=== PATIENT | female | born 1940 | race Caucasian/White ===

== ENCOUNTER 2016-09-12 09:10 | Inpatient (IN) | payer MEDICARE, MEDICAID ==
[~2016-09-12] VITALS: Ht 157.5 cm; Wt 79.8 kg
[~2016-09-12 09:10] MED LIST: ACET-2708; ASPI-1158 PO; ASPI-1159 PO; BENA20TA3 PO; CLON0.1T PO; COLC0.6T2 PO; DILT120T13 PO; DILT360C30 PO; FAMO20TA96 PO; GLIP5TAB12 PO; HYDR-3927 PO; HYDR-523; LOSA100T3 PO; METF500T4 PO; PREG50CA PO; VALS160T2 PO
[2016-09-12] MEDS ORDERED: SODIUM CHLORIDE 0.9% 1,000 ML IV ONE (09:40)
[2016-09-12] MEDS ORDERED: MORPHINE SULFATE 4 MG/ML CPJ (NOT FOR IM USE) IV STA (09:40)
[2016-09-12] MEDS ORDERED: ONDANSETRON HCL 4MG/2ML VIAL IV STA (09:40)
[2016-09-12 10:10] LABS: BASOPHILS % 0.3 % (0.0-2.0); EOSINOPHILS % 3.2 % (0.0-5.0); HEMATOCRIT. 39.5 % (36.0-48.0); LYMPHOCYTES % 15.9 % (20.0-50.0); MEAN CORPUSCULAR HEMOGLOBIN 27.8 pg (28.0-32.0); MEAN CORPUSCULAR VOLUME 84.4 fL (81.0-99.0); MEAN PLATELET VOLUME 9.2 fl (7.4-10.4); MONOCYTES % 6.4 % (2.0-8.0); NEUTROPHILS % 74.2 % (40.0-76.0); PLATELET 223 x1000/uL (130-400); RED BLOOD CELL COUNT 4.69 mill/uL (4.2-5.4); RED CELL DISTRIBUTION WIDTH 14.3 % (11.6-14.6)
[2016-09-12 10:12] LABS: CHLORIDE 102 mEq/L (98-107)
[2016-09-12 10:15] LABS: PROTHROMBIN TIME 10.4 sec
[2016-09-12 10:22] LABS: CARBON DIOXIDE 30 mEq/L (21-32)
[2016-09-12] MEDS ORDERED: POTASSIUM CHLORIDE 20MEQ TABLET SR PO ONE (11:15)
[2016-09-12 11:41] LABS: CLARITY URINE CLEAR (CLEAR); COLOR URINE YELLOW (YELLOW); GLUCOSE URINE NEGATIVE (NEGATIVE); KETONES URINE NEGATIVE (NEGATIVE); LEUKOCYTE ESTERASE URINE TRACE (NEGATIVE); NITRITE URINE NEGATIVE (NEGATIVE); OCCULT BLOOD URINE 2+ (NEGATIVE); PROTEIN URINE 3+ (NEGATIVE); SPECIFIC GRAVITY URINE 1.012 (1.005-1.030); UROBILINOGEN URINE 0.2 E.U./dL (0.2-1.0)
[2016-09-12] MEDS ORDERED: LEVOFLOXACIN 500MG PREMIX 100 ML IV ONE (12:15)
[2016-09-12] MEDS ORDERED: METRONIDAZOLE 500 MG PREMIX 100 ML IV ONE (12:15)
[2016-09-12] MEDS ORDERED: IPRATROPIUM/ALBUTEROL 0.5-3(2.5)MG/3ML NEB INH PRN (13:00)
[2016-09-12] MEDS ORDERED: ACETAMINOPHEN 325MG TABLET PO PRN (13:00)
[2016-09-12] MEDS ORDERED: PANTOPRAZOLE SODIUM 40 MG/VIAL IV NR (13:00)
[2016-09-12] MEDS ORDERED: LEVOFLOXACIN 500MG PREMIX 100 ML IV SCH (13:00)
[2016-09-12 13:46] LABS: TOTAL IRON BINDING CAPACITY 295 ug/dL (250-450)
[2016-09-12] MEDS: ONDANSETRON HCL 4MG/2ML VIAL IV PRN ×3 (15:11→23:59)
[2016-09-12] MEDS: HYDROMORPHONE HCL/PF 2MG/ML CPJ IV PRN ×3 (15:12→21:45)
[2016-09-12 15:37] VITALS: BP 148/88
[2016-09-12 16:00] VITALS: BP 156/84
[2016-09-12] MEDS ORDERED: CLON0.2T PO (17:46)
[2016-09-12] MEDS ORDERED: HYDROMORPHONE (17:46)
[2016-09-12] MEDS ORDERED: [UNRECOGNIZED DRUG - OTHER] (17:46)
[2016-09-12] MEDS ORDERED: AMLO10TA80 PO (17:46)
[2016-09-12] MEDS ORDERED: LANTUS INSULIN SQ (17:46)
[2016-09-12 22:04] VITALS: BP 156/95
[2016-09-13] VITALS (8 sets, daily range): BP systolic 143–186; BP diastolic 78–106
[2016-09-13] MEDS: SODIUM CHL 0.45% + KCL 20MEQ/L 1,000 ML IV SCH ×2 (00:13→12:20)
[2016-09-13] MEDS ORDERED: DEXTROSE 50% WATER 50ML SYRINGE IV PRN (00:15)
[2016-09-13] MEDS: LORAZEPAM 0.5MG TABLET PO PRN ×2 (00:44→11:29)
[2016-09-13 03:43] LABS: CLARITY URINE CLOUDY (CLEAR); COLOR URINE YELLOW (YELLOW); GLUCOSE URINE NEGATIVE (NEGATIVE); KETONES URINE NEGATIVE (NEGATIVE); LEUKOCYTE ESTERASE URINE 1+ (NEGATIVE); NITRITE URINE NEGATIVE (NEGATIVE); OCCULT BLOOD URINE 1+ (NEGATIVE); PROTEIN URINE 3+ (NEGATIVE); SPECIFIC GRAVITY URINE 1.015 (1.005-1.030); UROBILINOGEN URINE 0.2 E.U./dL (0.2-1.0)
[2016-09-13] MEDS: HYDROMORPHONE HCL/PF 2MG/ML CPJ IV PRN ×4 (04:25→17:57)
[2016-09-13] MEDS: ONDANSETRON HCL 4MG/2ML VIAL IV PRN ×5 (04:27→23:24)
[2016-09-13 06:01] LABS: BASOPHILS % 0.4 % (0.0-2.0); HEMATOCRIT. 37.9 % (36.0-48.0); HEMOGLOBIN. 12.2 g/dL (12.0-16.0); LYMPHOCYTES % 10.4 % (20.0-50.0); MEAN CORPUSCULAR HEMOGLOBIN 27.8 pg (28.0-32.0); MEAN CORPUSCULAR VOLUME 86.1 fL (81.0-99.0); MEAN PLATELET VOLUME 9.2 fl (7.4-10.4); MONOCYTES % 3.6 % (2.0-8.0); NEUTROPHILS % 85.6 % (40.0-76.0); PLATELET 213 x1000/uL (130-400); RED BLOOD CELL COUNT 4.41 mill/uL (4.2-5.4); RED CELL DISTRIBUTION WIDTH 14.4 % (11.6-14.6)
[2016-09-13 06:25] LABS: CARBON DIOXIDE 24 mEq/L (21-32); CHLORIDE 102 mEq/L (98-107)
[2016-09-13] MEDS: BLOOD SUGAR DIAGNOSTIC STRIP TEST SCH ×4 (06:34→21:49)
[2016-09-13] MEDS: INSULIN LISPRO 100 UNITS/ML SUBCUT SCH ×4 (06:38→22:00)
[2016-09-13] MEDS: PANTOPRAZOLE SODIUM 40 MG/VIAL IV SCH (08:33)
[2016-09-13] MEDS: AMLODIPINE 10MG TABLET PO SCH (11:51)
[2016-09-13] MEDS: CLONIDINE 0.2MG TABLET PO SCH (11:51)
[2016-09-13] MEDS: LEVOFLOXACIN 500MG PREMIX 100 ML IV SCH (15:13)
[2016-09-13] MEDS ORDERED: HYDROMORPHONE HCL/PF 4MG/ML CPJ IV PRN (16:30)
[2016-09-13] MEDS: CLONIDINE 0.1MG TABLET PO PRN (16:38)
[2016-09-14] VITALS (7 sets, daily range): BP systolic 128–167; BP diastolic 70–117
[2016-09-14] MEDS: HYDROMORPHONE HCL/PF 2MG/ML CPJ IV PRN ×2 (00:15→10:43)
[2016-09-14] MEDS: CLONIDINE 0.1MG TABLET PO PRN (05:29)
[2016-09-14] MEDS: SODIUM CHL 0.45% + KCL 20MEQ/L 1,000 ML IV SCH ×2 (05:30→14:29)
[2016-09-14] MEDS: BLOOD SUGAR DIAGNOSTIC STRIP TEST SCH ×4 (06:26→21:50)
[2016-09-14] MEDS: INSULIN LISPRO 100 UNITS/ML SUBCUT SCH ×4 (07:28→22:00)
[2016-09-14 08:14] LABS: BASOPHILS % 0.3 % (0.0-2.0); EOSINOPHILS % 0.2 % (0.0-5.0); HEMATOCRIT. 34.8 % (36.0-48.0); HEMOGLOBIN. 11.3 g/dL (12.0-16.0); MEAN CORPUSCULAR HEMOGLOBIN 27.7 pg (28.0-32.0); MEAN CORPUSCULAR VOLUME 85.5 fL (81.0-99.0); MEAN PLATELET VOLUME 9.5 fl (7.4-10.4); NEUTROPHILS % 78.5 % (40.0-76.0); PLATELET 224 x1000/uL (130-400); RED BLOOD CELL COUNT 4.07 mill/uL (4.2-5.4); RED CELL DISTRIBUTION WIDTH 14.4 % (11.6-14.6)
[2016-09-14] MEDS: ONDANSETRON HCL 4MG/2ML VIAL IV PRN ×4 (08:14→22:36)
[2016-09-14] MEDS: PANTOPRAZOLE SODIUM 40 MG/VIAL IV SCH (09:37)
[2016-09-14] MEDS: CLONIDINE 0.2MG TABLET PO SCH (09:37)
[2016-09-14] MEDS: AMLODIPINE 10MG TABLET PO SCH (09:38)
[2016-09-14] MEDS: NEBIVOLOL HCL 5 MG TABLET PO SCH (09:38)
[2016-09-14] MEDS ORDERED: SORBITOL 70% SOLN 30ML PO PRN (10:00)
[2016-09-14] MEDS: LEVOFLOXACIN 500MG PREMIX 100 ML IV SCH (14:29)
[2016-09-14] MEDS ORDERED: HYDROCODONE/ACETAMINOPHEN 5/325MG TABLET PO PRN (15:15)
[2016-09-14] MEDS: LORAZEPAM 0.5MG TABLET PO PRN (22:37)
[2016-09-15] VITALS (7 sets, daily range): BP systolic 115–191; BP diastolic 73–101
[2016-09-15] MEDS: SODIUM CHL 0.45% + KCL 20MEQ/L 1,000 ML IV SCH (02:23)
[2016-09-15] MEDS: LORAZEPAM 0.5MG TABLET PO PRN (02:23)
[2016-09-15 06:24] LABS: BASOPHILS % 0.5 % (0.0-2.0); EOSINOPHILS % 2.3 % (0.0-5.0); HEMATOCRIT. 33.9 % (36.0-48.0); HEMOGLOBIN. 11.2 g/dL (12.0-16.0); LYMPHOCYTES % 20.3 % (20.0-50.0); MEAN CORPUSCULAR VOLUME 84.6 fL (81.0-99.0); MEAN PLATELET VOLUME 9.1 fl (7.4-10.4); MONOCYTES % 6.9 % (2.0-8.0); PLATELET 205 x1000/uL (130-400); RED BLOOD CELL COUNT 4.01 mill/uL (4.2-5.4); RED CELL DISTRIBUTION WIDTH 14.3 % (11.6-14.6)
[2016-09-15] MEDS: INSULIN LISPRO 100 UNITS/ML SUBCUT SCH (07:15)
[2016-09-15] MEDS: BLOOD SUGAR DIAGNOSTIC STRIP TEST SCH (07:43)
[2016-09-15] MEDS: PANTOPRAZOLE SODIUM 40 MG/VIAL IV SCH (08:00)
[2016-09-15] MEDS: CLONIDINE 0.1MG TABLET PO PRN (08:01)
[2016-09-15] MEDS: AMLODIPINE 10MG TABLET PO SCH (08:01)
[2016-09-15] MEDS: NEBIVOLOL HCL 5 MG TABLET PO SCH (08:01)
[2016-09-15] MEDS: CLONIDINE 0.2MG TABLET PO SCH (09:00)
== END 2016-09-15 12:05 | disposition home or self-care (01) | DRG 378 ==
LOC: ER 09:49 → 5WST 12:20 → ENRESERV 13:38
PROVIDERS: ADMIT Internal Medicine Geriatric Medicine; ATTEND Internal Medicine Geriatric Medicine
DX: K62.5 Hemorrhage of anus and rectum (principal); E44.1 Mild protein-calorie malnutrition; K86.1 Other chronic pancreatitis; N39.0 Urinary tract infection, site not specified; E11.65 Type 2 diabetes mellitus with hyperglycemia; K57.30 Diverticulosis of large intestine without perforation or abscess without bleeding; E87.6 Hypokalemia; I10 Essential (primary) hypertension; K21.9 Gastro-esophageal reflux disease without esophagitis; K52.9 Noninfective gastroenteritis and colitis, unspecified; K58.1 Irritable bowel syndrome with constipation; Z96.1 Presence of intraocular lens; Z96.659 Presence of unspecified artificial knee joint; M19.90 Unspecified osteoarthritis, unspecified site; Z79.82 Long term (current) use of aspirin; Z79.84 Long term (current) use of oral hypoglycemic drugs; Z79.899 Other long term (current) drug therapy; Z83.3 Family history of diabetes mellitus; Z86.711 Personal history of pulmonary embolism; Z90.49 Acquired absence of other specified parts of digestive tract; Z68.32 Body mass index [BMI] 32.0-32.9, adult; Z90.710 Acquired absence of both cervix and uterus; Z98.49 Cataract extraction status, unspecified eye; Z88.0 Allergy status to penicillin; Z88.2 Allergy status to sulfonamides; Z88.6 Allergy status to analgesic agent; Z88.8 Allergy status to other drugs, medicaments and biological substances
CPT/HCPCS: 36415; 74176; 80048; 80053; 81001; 82270; 82962; 83036; 83540; 83550; 83605; 83690; 85025; 85610; 86850; 86900; 87015; 87040; 87045; 87077; 87086; 87186; 87427; 87449; 89055; 93005; 96361; 96365; 96366; 96375; 97116; 97162; 99285; C9113; J1170; J1815; J1956; J2270; J2405; J3480; J7030

== ENCOUNTER 2017-07-28 08:56 | Emergency (ER) | payer MEDICARE, MEDICAID ==
[~2017-07-28] VITALS: Ht 157.5 cm; Wt 73.0 kg
[~2017-07-28 08:56] MED LIST changes: -ACET-2708; +AMLO10TA80 PO; -ASPI-1158 PO; -ASPI-1159 PO; -BENA20TA3 PO; -CLON0.1T PO; +CLON0.2T PO; -COLC0.6T2 PO; -DILT120T13 PO; -DILT360C30 PO; -FAMO20TA96 PO; -GLIP5TAB12 PO; -HYDR-3927 PO; -HYDR-523; +HYDROMORPHONE; +LANTUS INSULIN SQ; -LOSA100T3 PO; -METF500T4 PO; -PREG50CA PO; -VALS160T2 PO; +[UNRECOGNIZED DRUG - OTHER]
[2017-07-28] MEDS ORDERED: ACETAMINOPHEN 325MG TABLET PO ONE (10:15)
[2017-07-28 10:40] VITALS: BP 145/82
[2017-07-30] MEDS ORDERED: INSU100I22 SQ (23:33)
== END 2017-07-28 10:43 | disposition home or self-care (01) ==
LOC: ER 09:00
DX: R51 Headache (principal); E11.9 Type 2 diabetes mellitus without complications; I10 Essential (primary) hypertension; Z79.4 Long term (current) use of insulin; Z88.0 Allergy status to penicillin; Z88.2 Allergy status to sulfonamides; Z88.5 Allergy status to narcotic agent
CPT/HCPCS: 99283

== ENCOUNTER → 2019-11-21 | Outpatient (CLI) | payer MEDICARE, MEDICAID ==
[~2019-11-21] MED LIST changes: -AMLO10TA80 PO; +AMLO5TAB88 PO; +ATOR20TA PO; +ATOR20TA65 PO; -CLON0.2T PO; +CLOP75TA15 PO; +DULO60CA44 PO; +FERR325T23 PO; -HYDROMORPHONE; +INSU100I22 SQ; -LANTUS INSULIN SQ; +LANTUSUD SUBCUT; +LIDO700A30 TOP; +METO-539 PO; +ONDA4TAB50 PO; +PANT40TA4 PO; +POLY17PO3 PO; +TOPUD PO; -[UNRECOGNIZED DRUG - OTHER]
== END | disposition home or self-care (01) ==
LOC: LAB 10:25
PROVIDERS: ATTEND Internal Medicine Geriatric Medicine
DX: Z20.828 Contact with and (suspected) exposure to other viral communicable diseases (principal)
CPT/HCPCS: C9803; U0003

== ENCOUNTER → 2019-11-23 | Day surgery (SDC) | payer MEDICARE, MEDICAID ==
[~2019-11-23] MED LIST changes: +LIDOCAINE HCL/EPINEPHRINE 1%-EPI 1:100,000 20 ML VIAL ONE; +SODIUM BICARBONATE 4% (2.4MEQ) 5ML VIAL IV ONE
== END | disposition home or self-care (01) ==
LOC: RAD 10:48
PROVIDERS: ATTEND Internal Medicine Geriatric Medicine
DX: N63.10 Unspecified lump in the right breast, unspecified quadrant (principal); R92.8 Other abnormal and inconclusive findings on diagnostic imaging of breast; Z79.4 Long term (current) use of insulin; Z79.899 Other long term (current) drug therapy; Z88.0 Allergy status to penicillin; Z88.2 Allergy status to sulfonamides; Z83.3 Family history of diabetes mellitus
CPT/HCPCS: 19083; 88305; J3490

== ENCOUNTER 2021-03-18 08:49 | Inpatient (IN) | payer MEDICARE, MEDICAID ==
[~2021-03-18] VITALS: Ht 162.6 cm; Wt 73.2 kg
[~2021-03-18 08:49] MED LIST changes: -CLOP75TA15 PO; +FLUC100T42 MT; +LACT1CAP77 PO; +LEVO500T2 MT; -LIDOCAINE HCL/EPINEPHRINE 1%-EPI 1:100,000 20 ML VIAL ONE; +METO5TAB2 PO; +METR-167 MT; -PANT40TA4 PO; +PANT40TA51 PO; -POLY17PO3 PO; -SODIUM BICARBONATE 4% (2.4MEQ) 5ML VIAL IV ONE
[2021-03-18] MEDS ORDERED: ACETAMINOPHEN 325MG TABLET PO PRN (09:45)
[2021-03-18] MEDS ORDERED: HYDROMORPHONE HCL/PF 2MG/ML CPJ IV PRN (09:45)
[2021-03-18] MEDS ORDERED: ONDANSETRON HCL 4MG/2ML INJ IV PRN (09:45)
[2021-03-18] MEDS ORDERED: CLONIDINE 0.1MG TABLET PO PRN (09:45)
[2021-03-18] MEDS: IPRATROPIUM/ALBUTEROL 0.5-3(2.5)MG/3ML NEB HHN SCH ×3 (10:15→16:00)
[2021-03-18] MEDS ORDERED: NALOXONE HCL 0.4MG/ML VIAL IV PRN (10:15)
[2021-03-18] MEDS: SODIUM CHL 0.45% + KCL 20MEQ/L 1,000 ML IV SCH ×2 (10:30→20:30)
[2021-03-18 11:05] LABS: CHLORIDE 101 mEq/L (98-107)
[2021-03-18 14:18] LABS: BASOPHILS % 0.3 % (0.0-2.0); EOSINOPHILS % 0.2 % (0.0-5.0); HEMATOCRIT. 33.7 % (36.0-48.0); LYMPHOCYTES % 13.3 % (20.0-50.0); MEAN CORPUSCULAR HEMOGLOBIN 26.9 pg (28.0-32.0); MEAN CORPUSCULAR VOLUME 82.2 fL (81.0-99.0); MEAN PLATELET VOLUME 8.9 fl (7.4-10.4); MONOCYTES % 9.2 % (2.0-8.0); PLATELET 209 x1000/uL (130-400); RED CELL DISTRIBUTION WIDTH 16.2 % (11.6-14.6)
[2021-03-18] MEDS ORDERED: ENOXAPARIN 40MG/0.4ML SYR SUBCUT SCH (15:00)
[2021-03-18 17:56] LABS: CREATINE KINASE 68 IU/L (26-192)
[2021-03-18] MEDS ORDERED: SODIUM CHLORIDE 0.9% 1,000 ML IV ONE (18:15)
[2021-03-18] MEDS: DEXAMETHASONE 10 MG/ML VIAL IV SCH (23:30)
[2021-03-19] MEDS: ALBUTEROL 6.7GM HFA INHALER ORI SCH ×2 (00:23)
[2021-03-19 04:00] VITALS: BP 163/59
[2021-03-19] MEDS: SODIUM CHL 0.45% + KCL 20MEQ/L 1,000 ML IV SCH ×3 (07:13→16:30)
[2021-03-19] MEDS: DOCUSATE SODIUM 250MG CAPSULE PO SCH (09:00)
[2021-03-19] MEDS ORDERED: ERGOCALCIFEROL 50000UNITS CAPSULE PO SCH ×2 (09:30→14:00)
[2021-03-19 10:05] LABS: BASOPHILS % 0.2 % (0.0-2.0); HEMATOCRIT. 34.8 % (36.0-48.0); HEMOGLOBIN. 11.1 g/dL (12.0-16.0); LYMPHOCYTES % 21.8 % (20.0-50.0); MEAN CORPUSCULAR HEMOGLOBIN 26.8 pg (28.0-32.0); MEAN CORPUSCULAR VOLUME 83.5 fL (81.0-99.0); MEAN PLATELET VOLUME 9.1 fl (7.4-10.4); MONOCYTES % 4.3 % (2.0-8.0); NEUTROPHILS % 73.7 % (40.0-76.0); PLATELET 199 x1000/uL (130-400); RED BLOOD CELL COUNT 4.16 mill/uL (4.2-5.4)
[2021-03-19 10:18] LABS: CHLORIDE 105 mEq/L (98-107)
[2021-03-19] MEDS: ENOXAPARIN 40MG/0.4ML SYR SUBCUT SCH ×2 (10:50→21:00)
[2021-03-19] MEDS: PANTOPRAZOLE 40MG DR TABLET PO SCH (10:51)
[2021-03-19] MEDS: DEXAMETHASONE 10 MG/ML VIAL IV SCH (10:51)
[2021-03-19 12:00] VITALS: BP_SYST 128; BP_SYST 136; BP_DIAS 48; BP_DIAS 74
[2021-03-19] MEDS ORDERED: METO25TA6 PO (13:25)
[2021-03-19] MEDS ORDERED: DEXTROSE 50% WATER 50ML SYRINGE IV PRN (15:45)
[2021-03-19 16:00] VITALS: BP 142/74
[2021-03-19] MEDS: BLOOD SUGAR DIAGNOSTIC STRIP TEST SCH ×2 (16:40→21:13)
[2021-03-19] MEDS: MONTELUKAST SODIUM 10MG TABLET PO SCH (17:47)
[2021-03-19] MEDS: INSULIN LISPRO 100 UNITS/ML SUBCUT SCH ×2 (18:01→21:14)
[2021-03-19 20:00] VITALS: BP 150/71
[2021-03-20] MEDS: SODIUM CHL 0.45% + KCL 20MEQ/L 1,000 ML IV SCH ×4 (00:48→20:00)
[2021-03-20] MEDS: ALBUTEROL 6.7GM HFA INHALER ORI SCH ×4 (05:42→17:22)
[2021-03-20] MEDS: PANTOPRAZOLE 40MG DR TABLET PO SCH (05:42)
[2021-03-20] MEDS: INSULIN LISPRO 100 UNITS/ML SUBCUT SCH ×4 (06:46→20:59)
[2021-03-20] MEDS: BLOOD SUGAR DIAGNOSTIC STRIP TEST SCH ×4 (06:47→20:26)
[2021-03-20 08:00] VITALS: BP 135/70
[2021-03-20] MEDS: DOCUSATE SODIUM 250MG CAPSULE PO SCH (08:21)
[2021-03-20] MEDS: ENOXAPARIN 40MG/0.4ML SYR SUBCUT SCH ×2 (08:21→20:58)
[2021-03-20] MEDS: DEXAMETHASONE 10 MG/ML VIAL IV SCH (08:22)
[2021-03-20] MEDS ORDERED: MAGNESIUM/ALUMINUM HYDROXIDE/SIMETHICONE 30ML UDC PO NR (09:30)
[2021-03-20] MEDS ORDERED: MAGNESIUM/ALUMINUM HYDROXIDE/SIMETHICONE 30ML UDC PO PRN (09:30)
[2021-03-20 11:06] LABS: BASOPHILS % 0.1 % (0.0-2.0); HEMATOCRIT. 34.6 % (36.0-48.0); LYMPHOCYTES % 13.1 % (20.0-50.0); MEAN CORPUSCULAR HEMOGLOBIN 26.5 pg (28.0-32.0); MEAN CORPUSCULAR VOLUME 83.9 fL (81.0-99.0); MEAN PLATELET VOLUME 8.9 fl (7.4-10.4); MONOCYTES % 7.1 % (2.0-8.0); NEUTROPHILS % 79.7 % (40.0-76.0); PLATELET 244 x1000/uL (130-400); RED BLOOD CELL COUNT 4.13 mill/uL (4.2-5.4); RED CELL DISTRIBUTION WIDTH 16.3 % (11.6-14.6)
[2021-03-20] MEDS ORDERED: AMLODIPINE 5MG TABLET PO NR (11:30)
[2021-03-20 11:37] LABS: CHLORIDE 104 mEq/L (98-107)
[2021-03-20 12:00] VITALS: BP 144/64
[2021-03-20 14:56] LABS: BG BASE EXCESS -2.4 mmol/L (-2.0-2.0); BG CARBOXYHEMOGLOBIN 0.9 % (0.5-1.5); BG DEOXYHEMOGLOBIN 9.9 % (0.0-5.0); BG FRACTION INSPIRED OXYGEN 21; BG HCO3 ACT 21.8 mmol/L (22.0-26.0); BG METHEMOGLOBIN 0.3 % (0.0-1.5); BG OXYHEMOGLOBIN 88.9 % (94.0-97.0); BG PCO2 35.9 mmHg (35.0-45.0); BG PH 7.402 (7.350-7.450); BG SAMPLE SITE RIGHT RADIAL; BG TOTAL HEMOGLOBIN 11.4 g/dL (12.0-18.0); BG VENT MODE ROOM AIR
[2021-03-20 16:00] VITALS: BP 149/64
[2021-03-20] MEDS: MONTELUKAST SODIUM 10MG TABLET PO SCH (17:22)
[2021-03-20 20:00] VITALS: BP 149/69
[2021-03-20] MEDS: AMLODIPINE 5MG TABLET PO SCH (20:59)
[2021-03-21] MEDS: ALBUTEROL 6.7GM HFA INHALER ORI SCH ×4 (00:02→17:22)
[2021-03-21 04:00] VITALS: BP 162/82
[2021-03-21] MEDS: BLOOD SUGAR DIAGNOSTIC STRIP TEST SCH ×4 (05:49→21:00)
[2021-03-21] MEDS: SODIUM CHL 0.45% + KCL 20MEQ/L 1,000 ML IV SCH ×2 (05:52→22:47)
[2021-03-21] MEDS: FAMOTIDINE 20MG TABLET PO SCH (06:02)
[2021-03-21] MEDS: INSULIN LISPRO 100 UNITS/ML SUBCUT SCH ×4 (06:12→22:09)
[2021-03-21 08:00] VITALS: BP 147/75
[2021-03-21] MEDS ORDERED: AMLODIPINE 2.5MG TABLET PO ONE (09:15)
[2021-03-21] MEDS: ENOXAPARIN 40MG/0.4ML SYR SUBCUT SCH ×2 (09:35→22:06)
[2021-03-21] MEDS: DOCUSATE SODIUM 250MG CAPSULE PO SCH (09:35)
[2021-03-21] MEDS: AMLODIPINE 5MG TABLET PO SCH ×2 (09:36→22:07)
[2021-03-21] MEDS: DEXAMETHASONE 10 MG/ML VIAL IV SCH (09:37)
[2021-03-21 12:00] VITALS: BP 156/88
[2021-03-21] MEDS: BENZONATATE 100MG CAPSULE PO SCH ×3 (13:24→22:06)
[2021-03-21] MEDS: INSULIN GLARGINE UD 100 UNITS/ML SYR SUBCUT SCH (13:33)
[2021-03-21 16:00] VITALS: BP 150/78
[2021-03-21] MEDS: MONTELUKAST SODIUM 10MG TABLET PO SCH (16:36)
[2021-03-21 20:00] VITALS: BP 147/86
[2021-03-21 20:02] VITALS: BP 147/86
[2021-03-22] VITALS: BP 138/77
[2021-03-22 04:00] VITALS: BP 144/74
[2021-03-22] MEDS: BENZONATATE 100MG CAPSULE PO SCH ×3 (05:32→22:17)
[2021-03-22] MEDS: FAMOTIDINE 20MG TABLET PO SCH (05:32)
[2021-03-22] MEDS: ALBUTEROL 6.7GM HFA INHALER ORI SCH ×4 (05:32→17:17)
[2021-03-22] MEDS: INSULIN LISPRO 100 UNITS/ML SUBCUT SCH ×4 (06:10→22:15)
[2021-03-22] MEDS: BLOOD SUGAR DIAGNOSTIC STRIP TEST SCH ×4 (06:10→21:00)
[2021-03-22 08:00] VITALS: BP 161/58
[2021-03-22] MEDS ORDERED: AMLODIPINE 2.5MG TABLET PO SCH (09:00)
[2021-03-22] MEDS: INSULIN GLARGINE UD 100 UNITS/ML SYR SUBCUT SCH (09:36)
[2021-03-22] MEDS: ENOXAPARIN 40MG/0.4ML SYR SUBCUT SCH ×2 (09:36→22:14)
[2021-03-22] MEDS: DOCUSATE SODIUM 250MG CAPSULE PO SCH (09:37)
[2021-03-22] MEDS: DEXAMETHASONE 10 MG/ML VIAL IV SCH (09:37)
[2021-03-22] MEDS: AMLODIPINE 5MG TABLET PO SCH ×2 (09:37→21:00)
[2021-03-22 12:18] VITALS: BP 155/83
[2021-03-22] MEDS: HYDRALAZINE HCL 50MG TABLET PO SCH ×2 (13:58→22:00)
[2021-03-22 16:00] VITALS: BP 147/77
[2021-03-22 16:23] LABS: HEMATOCRIT. 38.2 % (36.0-48.0); HEMOGLOBIN. 12.3 g/dL (12.0-16.0); MEAN CORPUSCULAR HEMOGLOBIN 26.6 pg (28.0-32.0); MEAN CORPUSCULAR VOLUME 82.5 fL (81.0-99.0); MEAN PLATELET VOLUME 9.6 fl (7.4-10.4); PLATELET 246 x1000/uL (130-400); RED BLOOD CELL COUNT 4.63 mill/uL (4.2-5.4); RED CELL DISTRIBUTION WIDTH 16.2 % (11.6-14.6)
[2021-03-22] MEDS: MONTELUKAST SODIUM 10MG TABLET PO SCH (17:12)
[2021-03-22] MEDS ORDERED: SODIUM POLYSTYRENE SULFONATE 15 G/60 ML BOT PO NR (19:00)
[2021-03-22] MEDS ORDERED: INSULIN REGULAR (HUMULIN R) 300UNITS/3ML VIAL IV NR (19:15)
[2021-03-22 20:00] VITALS: BP 90/50
[2021-03-22 21:15] LABS: PLATELET ESTIMATE NORMAL
[2021-03-23 04:00] VITALS: BP 170/85
[2021-03-23] MEDS: BENZONATATE 100MG CAPSULE PO SCH ×3 (05:01→20:41)
[2021-03-23] MEDS: FAMOTIDINE 20MG TABLET PO SCH (05:01)
[2021-03-23] MEDS: ALBUTEROL 6.7GM HFA INHALER ORI SCH ×2 (05:01→23:05)
[2021-03-23] MEDS: BLOOD SUGAR DIAGNOSTIC STRIP TEST SCH ×4 (05:54→20:41)
[2021-03-23] MEDS: HYDRALAZINE HCL 50MG TABLET PO SCH (05:54)
[2021-03-23] MEDS: INSULIN LISPRO 100 UNITS/ML SUBCUT SCH ×4 (06:21→20:41)
[2021-03-23 06:52] LABS: BASOPHILS % 0.1 % (0.0-2.0); HEMATOCRIT. 35.8 % (36.0-48.0); LYMPHOCYTES % 10.9 % (20.0-50.0); MEAN CORPUSCULAR HEMOGLOBIN 27.3 pg (28.0-32.0); MEAN CORPUSCULAR VOLUME 81.2 fL (81.0-99.0); MEAN PLATELET VOLUME 9.1 fl (7.4-10.4); MONOCYTES % 8.7 % (2.0-8.0); NEUTROPHILS % 80.3 % (40.0-76.0); PLATELET 253 x1000/uL (130-400); RED BLOOD CELL COUNT 4.41 mill/uL (4.2-5.4); RED CELL DISTRIBUTION WIDTH 16.1 % (11.6-14.6)
[2021-03-23 08:00] VITALS: BP 163/98
[2021-03-23] MEDS: ENOXAPARIN 40MG/0.4ML SYR SUBCUT SCH ×2 (09:26→20:42)
[2021-03-23] MEDS: AMLODIPINE 5MG TABLET PO SCH ×2 (09:26→20:41)
[2021-03-23] MEDS: DEXAMETHASONE 10 MG/ML VIAL IV SCH (09:26)
[2021-03-23] MEDS: DOCUSATE SODIUM 250MG CAPSULE PO SCH (09:26)
[2021-03-23] MEDS: INSULIN GLARGINE UD 100 UNITS/ML SYR SUBCUT SCH (10:23)
[2021-03-23 12:00] VITALS: BP 144/76
[2021-03-23] MEDS: HYDRALAZINE HCL 25MG TABLET PO SCH ×2 (14:04→21:13)
[2021-03-23 16:00] VITALS: BP 136/79
[2021-03-23] MEDS: MONTELUKAST SODIUM 10MG TABLET PO SCH (17:03)
[2021-03-23 20:00] VITALS: BP 137/71
[2021-03-24] VITALS: BP 148/88
[2021-03-24 04:00] VITALS: BP 145/77
[2021-03-24] MEDS: ALBUTEROL 6.7GM HFA INHALER ORI SCH ×2 (05:44→12:22)
[2021-03-24] MEDS: FAMOTIDINE 20MG TABLET PO SCH (05:44)
[2021-03-24] MEDS: BENZONATATE 100MG CAPSULE PO SCH ×2 (05:44→13:40)
[2021-03-24] MEDS: BLOOD SUGAR DIAGNOSTIC STRIP TEST SCH ×2 (05:45→12:18)
[2021-03-24] MEDS: HYDRALAZINE HCL 25MG TABLET PO SCH ×2 (05:45→13:40)
[2021-03-24] MEDS: INSULIN LISPRO 100 UNITS/ML SUBCUT SCH ×2 (06:16→12:23)
[2021-03-24 07:45] LABS: HEMATOCRIT. 36.4 % (36.0-48.0); LYMPHOCYTES % 9.5 % (20.0-50.0); MEAN CORPUSCULAR HEMOGLOBIN 26.9 pg (28.0-32.0); MEAN CORPUSCULAR VOLUME 81.8 fL (81.0-99.0); MEAN PLATELET VOLUME 9.2 fl (7.4-10.4); MONOCYTES % 7.3 % (2.0-8.0); NEUTROPHILS % 83.2 % (40.0-76.0); PLATELET 278 x1000/uL (130-400); RED BLOOD CELL COUNT 4.45 mill/uL (4.2-5.4); RED CELL DISTRIBUTION WIDTH 16.3 % (11.6-14.6)
[2021-03-24 08:00] VITALS: BP 165/82
[2021-03-24] MEDS: DOCUSATE SODIUM 250MG CAPSULE PO SCH (08:43)
[2021-03-24] MEDS: AMLODIPINE 5MG TABLET PO SCH (08:43)
[2021-03-24] MEDS: DEXAMETHASONE 10 MG/ML VIAL IV SCH (08:44)
[2021-03-24] MEDS: ENOXAPARIN 40MG/0.4ML SYR SUBCUT SCH (08:45)
[2021-03-24] MEDS: INSULIN GLARGINE UD 100 UNITS/ML SYR SUBCUT SCH (10:29)
[2021-03-24] MEDS ORDERED: MEGESTROL ACETATE 400 MG/10 ML UDC PO SCH (10:45)
[2021-03-24 12:00] VITALS: BP 159/88
[2021-03-24 14:08] VITALS: BP 159/88
[2021-03-24] MEDS ORDERED: HYDRALAZINE HCL 100MG TABLET PO SCH (22:00)
== END 2021-03-24 15:40 | disposition home health service (06) | DRG 871 ==
LOC: ER 08:49 → MICUSO 10:39 → 7EST 03-19 11:51
PROVIDERS: ADMIT Nurse Practitioner Family; ATTEND Nurse Practitioner Family
DX: A41.89 Other specified sepsis (principal); U07.1 COVID-19; J12.82 Pneumonia due to coronavirus disease 2019; J96.01 Acute respiratory failure with hypoxia; E87.1 Hypo-osmolality and hyponatremia; E44.0 Moderate protein-calorie malnutrition; R65.20 Severe sepsis without septic shock; M19.90 Unspecified osteoarthritis, unspecified site; K21.9 Gastro-esophageal reflux disease without esophagitis; K57.90 Diverticulosis of intestine, part unspecified, without perforation or abscess without bleeding; E11.40 Type 2 diabetes mellitus with diabetic neuropathy, unspecified; E78.5 Hyperlipidemia, unspecified; K44.9 Diaphragmatic hernia without obstruction or gangrene; E86.0 Dehydration; I49.1 Atrial premature depolarization; D63.8 Anemia in other chronic diseases classified elsewhere; K29.00 Acute gastritis without bleeding; R53.81 Other malaise; E11.22 Type 2 diabetes mellitus with diabetic chronic kidney disease; E87.5 Hyperkalemia; I12.9 Hypertensive chronic kidney disease with stage 1 through stage 4 chronic kidney disease, or unspecified chronic kidney disease; N18.30 Chronic kidney disease, stage 3 unspecified; Z79.899 Other long term (current) drug therapy; Z87.440 Personal history of urinary (tract) infections; Z86.73 Personal history of transient ischemic attack (TIA), and cerebral infarction without residual deficits; Z68.27 Body mass index [BMI] 27.0-27.9, adult; Z79.4 Long term (current) use of insulin; Z83.3 Family history of diabetes mellitus; Z90.49 Acquired absence of other specified parts of digestive tract; Z88.0 Allergy status to penicillin; Z88.2 Allergy status to sulfonamides; Z79.2 Long term (current) use of antibiotics; Z28.3 Underimmunization status; D89.839 Cytokine release syndrome, grade unspecified; J06.9 Acute upper respiratory infection, unspecified
CPT/HCPCS: 36415; 36600; 71045; 80048; 80053; 82375; 82550; 82805; 82962; 83036; 83615; 83880; 84484; 85025; 85379; 86140; 87426; 87635; 93005; 93970; 97162; 97530; 99285; C1893; J1100; J1170; J1650; J1815; J2405; J3480